=== PATIENT | male | born 1995 | race Caucasian/White ===

== ENCOUNTER 2020-06-29 00:48 | Emergency (ER) | payer OTHER, SELFPAY ==
[2020-06-29 00:53] VITALS: BP 157/99; PULSE 100; RESP 22; TEMP 36.8; O2SAT 100
--- NOTE | 2020-06-29 01:22 | W.ED.GENAD ---
Discharge Plan Disposition Patient Disposition: HOME Condition: Good Discharge Details Clinical Impression: Dislocated shoulder Primary Care Provider: Boby Mayorga ED Provider: Talon Young Home Meds and New Rx's Prescriptions: No Action No Known Home Meds RF: 0 Discharge Instructions Instructions: Shoulder Dislocation (ED) Additional Instructions: Wear sling until follow-up with orthopedics. Contact [facility] on Wednesday. You may do gentle range of motion exercises when your pain is better. Ice on and off over the weekend. Acetaminophen or ibuprofen if needed for discomfort. Return to ED if any problems. Stand Alone Forms: Work Release Medical Decision Making X-ray of left shoulder confirms anterior dislocation. Attempted reduction without meds by external rotation as well as FARES technique which he simply could not tolerate. He has previously undergone procedural sedation in the past for shoulder dislocation. We discussed risk and benefits for same. Last p.o. intake was liquid 2 hours prior to arrival. Last solid intake was about 5 hours prior to arrival. Please see procedure documentation for procedural sedation as well as reduction. Patient had no complications. He received a total of 160 mg of propofol and 20 mg aliquots. Ultimately reduced with external rotation as well as some traction. Once propofol had worn off he was sent to x-ray for reduction films. Postreduction films confirmed shoulder to be back in place. Patient to be discharged home in a sling. Note for work provided with no use of left arm until follow-up with orthopedics. He will return to [facility] as he already has a relationship with orthopedics there. HPI General Mode of arrival: ambulatory. Date/Time Provider Initiated Documentation: 06/29/20 01:22. Limitations to Documentation: no limitations. Information obtained by: patient and RN notes reviewed. HPI Narrative: Patient presents to ED with left shoulder dislocation. Patient is left-hand dominant. Patient has previous history of shoulder dislocation with surgery to repair same about 5 years ago. Has noticed that his shoulder has been getting worse over time. Tonight he was just trying to scoot himself across the couch. He felt something different in his shoulder and then immediate pain and spasm. He has difficulty moving his arm at the shoulder. Denies numbness or weakness. Denies other injury or problem. Related Data Home Medications Medication Instructions Recorded Confirmed Unknown [No Known Home Meds] 08/27/17 11/27/17 Allergies Allergy/AdvReac Type Severity Reaction Status Date / Time No Known Allergies Allergy Unverified 12/07/17 14:54 General Stated Complaint: Orthopedic ALEXANDRE: 4 Review of Systems Narrative: As documented in HPI otherwise negative as below. Const: no fever, chills, weakness Resp: no cough, SOB, pleuritic pain CV: no CP, diaphoresis, edema, syncope GI: no abdominal pain, nausea, vomiting, diarrhea Neuro: no headache, numbness, focal weakness, confusion PFSH Medical History (Reviewed 06/29/20 @ 01: by Talon Young MD) No significant past medical history Surgical History (Reviewed 06/29/20 @ :27 by Talon Young MD) S/P shoulder surgery Social History (Reviewed 06/29/20 @ : by Talon Young MD) Smoking/Tobacco Use Status: Never Smoking risk assessment performed?: Yes Alcohol Intake: never Drug use: Never Do you feel safe at home: Yes Do you feel safe in your relationship?: Yes Exam Narrative Exam Narrative: Const: WDWN male in NAD, but hunched over holding left arm against body. HEENT: NC/AT. Normal facial exam. Eyes: Normal conjunctiva and sclera. Neck: Supple. Trachea midline. Lungs: Normal respiratory effort. Cor: Good radial pulses. Neuro: A+O x 3. Normal speech, mentation, gait. Cranial nerves II - XII grossly intact. No gross motor or sensory deficit. Ext: Minimal range of motion of left shoulder due to pain. Normal range of motion from the elbow down. Neurovascularly intact distally. Sensation intact over deltoid. Skin: Warm and dry without rash. Course Vital Signs Vital signs: Vital Signs Temperature 98.2 F 06/29/20 00:53 Pulse 100 H 06/29/20 00:53 Respiratory Rate 22 06/29/20 00:53 Blood Pressure 157/99 H 06/29/20 00:53 Pulse Oximetry 100 06/29/20 00:53 Temperature 98.2 F 06/29/20 00:53 Temperature Source Temporal Artery Scan 06/29/20 00:53 Pulse 100 H 06/29/20 00:53 Respiratory Rate 22 06/29/20 00:53 Respiratory Effort Non-Labored 06/29/20 00:55 Blood Pressure 157/99 H 06/29/20 00:53 Blood Pressure Position Sitting 06/29/20 00:53 Pulse Oximetry 100 11/28/20 00:53 Oxygen Delivery Method Room Air 06/29/20 00:53 Oxygen Flow Rate 0 06/29/20 00:53 Pain Level 8 06/29/20 01:02 Procedures Orthopedic Joint Reduction Joint #1: Time Out Performed: Yes Side: left Joint Reduction Location: shoulder Analgesia: procedural sedation Shoulder Technique Used (if applicable): external rotation Post-reduction neuro exam: intact Post-reduction vascular: intact Post Reduction X-Ray Obtained: Yes Post Reduction X-Ray Results: reduced Splint Applied: Yes Patient Tolerated Procedure: well Procedural Sedation Indication: fracture/dislocation reduction Presedation Evaluation: Otherwise healthy male with unremarkable exam other than left shoulder dislocation. Last ate 5 hours prior to arrival. Last drank 2 hours prior to arrival. Mallampati score 1 ASA Class: I Preparation: cardiac cath lab radiology technologist applied, pulse oximeter, capnometry used, supplemental O2 applied, suction/airway equipment at bedside and IV secured IV Propofol dose (mg): 160 Patient Tolerated Procedure: well Complications: none Additional Comments: Received a total of 160 mg of propofol in 20 mg aliquots
--- NOTE | 2020-06-29 01:40 | DI.RAD_ITS ---
EXAM: XR SHOULDER LT COMPLETE 2+V CLINICAL HISTORY: felt shoulder pop out TECHNIQUE: COMPARISON: CR LEFT SHOULDER COMP. POST REDUC from 01/19/2015 FINDINGS: Five views were obtained and show anterior dislocation of the humeral head from the glenoid fossa. T here is an apparent Hill-Sachs deformity. No other fracture seen. Two post reduction views show reduction of the dislocation, no fracture identified apart from the Hil l-Sachs deformity of the humeral head IMPRESSION: RADIATION DOSE DELIVERED: Total DLP Total DLP
--- NOTE | 2020-06-29 01:54 | DI.VRAD_ITS ---
PROCEDURE INFORMATION: Exam: XR Left Shoulder Exam date and time: 06/29/2020 1:27 AM Age: 25 years old Clinical indication: Injury or trauma; Sprain or strain; Injury date: 06/29/20; Injury details: PT felt shoulder pop; Prior surgery; Surgery type: Left shoulder TECHNIQUE: Imaging protocol: XR Left shoulder. Views: 2 or more views. COMPARISON: CR LEFT SHOULDER COMP. POST REDUC 01/19/2015 9:52 PM FINDINGS: Bones/joints: There is anteroinferior dislocation of the humeral head in relationship to the glenoid. There is no fracture identified. There are no lytic or blastic bone lesions. Soft tissues: Normal. IMPRESSION: Anteroinferior dislocation of the left humeral head in relationship to the glenoid. Dictated and Authenticated by: Lito Rice MD. Ordering:DUGLAS Hanley MD
[2020-06-29 02:27] VITALS: BP 134/89; PULSE 95; RESP 22; O2SAT 100
[2020-06-29] MEDS: Normal Saline 1,000 ML 125 ML IV (02:28)
[2020-06-29 02:32] VITALS: PULSE 94; RESP 20; O2SAT 96
[2020-06-29 02:34] VITALS: BP 123/75
[2020-06-29] MEDS: Propofol 200 MG/20 ML VIAL 100 MG IVP (02:40)
[2020-06-29 02:45] VITALS: BP 125/80; RESP 22; O2SAT 98
--- NOTE | 2020-06-29 03:09 | DI.VRAD_ITS ---
PROCEDURE INFORMATION: Exam: XR Left Shoulder Exam date and time: 06/29/2020 2:40 AM Age: 25 years old Clinical indication: Injury or trauma; Dislocation; Injury date: 06/29/20; Injury details: Post reduction films; Prior surgery; Surgery type: Left shoulder TECHNIQUE: Imaging protocol: XR Left shoulder. Views: 2 or more views. COMPARISON: CR XR SHOULDER LT COMPLETE 2+V 06/29/2020 1:34 AM FINDINGS: Bones/joints: The previously described left shoulder dislocation has been reduced. There are no fractures identified. Small inferior glenoid cyst is demonstrated, a finding not visualized on the previous study. Soft tissues: Normal. IMPRESSION: The previously described left shoulder dislocation has been reduced. Dictated and Authenticated by: Lito Rice MD. Ordering:DUGLAS Hanley MD
[2020-06-29 03:48] VITALS: BP 125/80; PULSE 94; RESP 22; TEMP 36.8; O2SAT 98
== END 2020-06-29 03:50 | disposition home or self-care (01) ==
PROVIDERS: Emergency Provider Emergency Medicine; PCP Pediatrics
DX: S43.012A Anterior subluxation of left humerus, initial encounter (principal); X50.9XXA Other and unspecified overexertion or strenuous movements or postures, initial encounter
CPT/HCPCS: 23650; 73030; 96361; 96374; 99281; J2704; L3650

== ENCOUNTER 2021-01-26 20:27 | Emergency (ER) | payer OTHER, SELFPAY ==
[2021-01-26 20:40] VITALS: BP 141/84; PULSE 100; RESP 16; TEMP 36.6; O2SAT 98
--- NOTE | 2021-01-26 20:45 | DI.RAD_ITS ---
Exam(s) XR SHOULDER LT COMPLETE 2+V EXAM: XR SHOULDER LT COMPLETE 2+V CLINICAL HISTORY: shoulder pain. TECHNIQUE: 2D digital imaging was performed. COMPARISON: CR,XR XR SHOULDER LT COMP POST REDUC from 06/29/2020 FINDINGS: There is anterior dislocation of the humeral head relative to the glenoid fossa. No obvious fracture s. IMPRESSION: DATA REPOSITORY: RADIATION DOSE DELIVERED:
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
[2021-01-26] MEDS: HYDROmorphone 2 MG/ML VIAL 1 MG IVP (21:06)
[2021-01-26 21:55] VITALS: PULSE 85; RESP 18; O2SAT 100
--- NOTE | 2021-01-26 22:00 | DI.RAD_ITS ---
Exam(s) XR SHOULDER LT COMP POST REDUC EXAM: XR SHOULDER LT COMP POST REDUC CLINICAL HISTORY: ?reduced shoulder dislocation. TECHNIQUE: 2D digital imaging was performed. COMPARISON: CR,XR XR SHOULDER LT COMP POST REDUC from 06/29/2020 CR,XR XR SHOULDER LT COMPLETE 2+V from 01/26/2021 FINDINGS: There is anterior dislocation of the humeral head relative to the glenoid fossa. No prominent Hill-S achs deformity. No obvious glenoid fracture. AC joint appears unremarkable. IMPRESSION: DATA REPOSITORY: RADIATION DOSE DELIVERED:
[2021-01-26 22:05] VITALS: PULSE 82; PULSE 85; RESP 16; RESP 18; O2SAT 100; O2SAT 99
[2021-01-26 22:13] VITALS: PULSE 74; RESP 23; O2SAT 96
[2021-01-26 22:16] VITALS: BP 130/73; PULSE 70; RESP 20; O2SAT 96
[2021-01-26] MEDS: Propofol 200 MG/20 ML VIAL IVP (22:21)
--- NOTE | 2021-01-26 22:32 | DI.VRAD_ITS ---
PROCEDURE INFORMATION: Exam: XR Left Shoulder Exam date and time: 01/26/2021 8:54 PM Age: 25 years old Clinical indication: Injury or trauma; Fall; Dislocation; Severity not specified; Right; Injury details: Has dislocated this shoulder several times TECHNIQUE: Imaging protocol: XR Left shoulder. Views: 2 or more views. COMPARISON: CR XR SHOULDER LT COMP POST REDUC 06/29/2020 2:48 AM FINDINGS: Bones/joints: Acute anterior dislocation of the left humerus. No discrete linear fracture lucency or displaced fracture is visualized, however overlapping osseous structures limits evaluation of the anterior, inferior glenoid. There is flattening of the posterolateral humeral head suggestive for Hill-Sachs lesion. Acromioclavicular and coracoclavicular intervals are preserved. Soft tissues: No focal abnormality. IMPRESSION: 1. Acute anterior dislocation of the left humerus. 2. Flattening of the posterolateral left humeral head suggestive for Hill-Sachs lesion. Dictated and Authenticated by: Pedrito Aleman MD. Ordering:RASHAWN Yeh MD
--- NOTE | 2021-01-26 22:33 | DI.VRAD_ITS ---
PROCEDURE INFORMATION: Exam: XR Left Shoulder Exam date and time: 01/26/2021 10:13 PM Age: 25 years old Clinical indication: Injury or trauma; Other: Post reduction; Dislocation; Severity not specified; Shoulder; Left TECHNIQUE: Imaging protocol: XR Left shoulder. Views: 2 or more views. COMPARISON: CR XR SHOULDER LT COMPLETE 2+V 01/26/2021 9:17 PM FINDINGS: Bones/joints: Interval improved alignment of the left glenohumeral interval without acute dislocation. There is deformity of the posterolateral humeral head compatible with Hill-Sachs lesion. Otherwise no acute fracture. Acromioclavicular and coracoclavicular intervals are preserved. Soft tissues: No focal abnormality. IMPRESSION: 1. Improved alignment of the left glenohumeral interval without acute dislocation. 2. Defect of the posterolateral humeral head consistent with Hill-Sachs lesion. Dictated and Authenticated by: Pedirto Aleman MD. Ordering:RASHAWN Yeh MD
[2021-01-26 22:38] VITALS: PULSE 80; RESP 18; O2SAT 98
== END 2021-01-26 23:00 | disposition home or self-care (01) ==
PROVIDERS: Emergency Provider Emergency Medicine; PCP Nurse Practitioner Family
DX: S43.085A Other dislocation of left shoulder joint, initial encounter (principal); X58.XXXA Exposure to other specified factors, initial encounter
CPT/HCPCS: 23655; 73030; 96374; 99284; 99283; J2704

== ENCOUNTER 2021-07-15 08:11 | Emergency (ER) | payer OTHER, SELFPAY ==
[2021-07-15 08:14] VITALS: BP 148/85; PULSE 58; RESP 12; TEMP 36.8; O2SAT 99
--- NOTE | 2021-07-15 08:15 | DI.RAD_ITS ---
Exam(s) XR SHOULDER LT COMPLETE 2+V EXAM: XR SHOULDER LT COMPLETE 2+V CLINICAL HISTORY: improving shoulder pain after bedside reduction. TECHNIQUE: 2D digital imaging was performed of the left shoulder. Five images were obtained. AP, G rashey, Y-view and axillary views were obtained. COMPARISON: CR,XR XR SHOULDER LT COMPLETE 2+V from 01/26/2021 FINDINGS: BONES: No acute fracture is present. No bony destructive lesion is seen. JOINTS: No dislocation present. SOFT TISSUE: Normal. IMPRESSION: No acute fracture or dislocation. DATA REPOSITORY: RADIATION DOSE DELIVERED:
--- NOTE | 2021-07-15 08:30 | ED.GENADUL_ITS ---
Discharge Plan Disposition Patient Disposition: HOME Condition: Improving Discharge Details Clinical Impression: Recurrent anterior dislocation of left shoulder Primary Care Provider: Leo Wallace ED Provider: Lisandro Youngblood Home Meds and New Rx's Prescriptions: No Action No Known Home Meds RF: 0 Discharge Instructions Instructions: Shoulder Dislocation (ED) Additional Instructions: Tylenol and/or ibuprofen as needed for pain. See enclosed work note Please follow-up with Dr. Tinsley in clinic. We did place a referral today on your behalf. The clinic number is [phone]. May remove sling for sleep or to bathe. Ice to reduce discomfort. Return to the ER for any concerns. Stand Alone Forms: Work Release Referrals: Butch Tinsley MD [ [facility] STAFF PHYSICIAN] - Medical Decision Making 26-year-old male with a history of previous left recurrent anterior glenohumeral dislocations, status post repair at the [facility], following which he has had 3 recurrent dislocations for a total of approximately 8. This morning rolled over in bed and reached out towards his child, felt a left shoulder pop and then sensation of recurrent dislocation. He held arm in flexion and internal rotation, presented to the ER. Patient's bedside clinical exam reveals no motor or sensory function, 2+ radial pulse bilaterally. With the patient's consent we performed breathing techniques, I applied axial traction to the humerus and external rotation, there was a palpable clunk and the patient felt significant immediate improvement of pain. Post bedside reduction neuro, motor, vascular exam is within normal limits. Patient referred for x-ray; negative, reduced. Patient has previous seen Dr. Tinsley for a slap lesion of the affected joint and has considered plans for repeat shoulder repair for recurrent glenohumeral instability. He is placed in a sling, we will refer him to orthopedics for follow-up. He is stable and improved at this time. HPI General Mode of arrival: ambulatory . Date/Time Provider Initiated Documentation: 07/15/21 08:15 . Limitations to Documentation: no limitations . Information obtained by: patient . History of Present Illness 26 year old M presents to the emergency department with the chief complaint of Recurrent left shoulder pain, described as moderate and similar to prior episodes, Quality is described as dull and constant, and is localized to the lower extremity. Patient reports no radiation. and it has been constant. No relieving factors improve symptom(s), Movement worsens symptoms . Patient notes denies weakness. Patient did receive the following treatments prior to arrival, none Related Data Home Medications Medication Instructions Recorded Confirmed Unknown [No Known Home Meds] 07/15/21 07/15/21 Allergies Allergy/AdvReac Type Severity Reaction Status Date / Time No Known Allergies Allergy Verified 07/15/21 08:18 General Stated Complaint: Orthopedic ALEXANDRE: 3 Review of Systems Narrative: Otherwise well, not immunized for COVID-19. Sick systems reviewed and. No motor weakness or numbness today. PFSH All Active Problems (Updated 07/15/21 @ 08:49 by Lisandro Youngblood MD) 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) No-show for appointment (Acute) Left rotator cuff tear (Acute) Instability of left shoulder joint (Acute) Anterior dislocation of left shoulder (Acute) Diabetes mellitus screening (Acute) Screening cholesterol level (Acute) Depression (Chronic) Obesity (Chronic) Medical History No significant past medical history Surgical History S/P shoulder surgery Social History Smoking/Tobacco Use Status: Never Smoking risk assessment performed?: Yes Alcohol Intake: current Alcohol Intake frequency: a few times a week Alcohol type: beer, wine and hard liquor Drug use: Never Substance use type: does not use Current gender identity: male Do you feel safe at home: Yes Do you feel safe in your relationship?: Yes Exam Narrative Exam Narrative: GEN: awake, alert, oriented 3. Pleasant, well groomed, interactive. HEAD: Normocephalic, atraumatic ENT: Mucous membranes moist, oropharynx unremarkable, External ear exam unremarkable EYES: PERRL, EOMI NECK: Full ROM, no GASTON, no menigismus CHEST/RESP: Nontender, clear to auscultation bilateral, no wheeze/rhonchi/rales CARDIOVASCULAR: RRR, no murmur, rub anne marie. 2+ Rad pulse bilateral EXT: Right upper extremity unremarkable. 2+ radial bilaterally. Loss of fullness of humeral head left. Left arm held in abduction and internal rotation. Patient demonstrates normal motor function of radial, median, ulnar nerves distally. Sensation is intact throughout. Neuro: Grossly normal neurologic exam, conversant, interactive. Psych: Speech fluent, thoughts congruent, affect normal Course Vital Signs Vital signs: Vital Signs Temperature 36.8 C 07/15/21 08:14 Pulse 58 L 07/15/21 08:14 Respiratory Rate 12 07/15/21 08:14 Blood Pressure 148/85 H 07/15/21 08:14 Pulse Oximetry 99 07/15/21 08:14 Temperature 36.8 C 07/15/21 08:14 Temperature Source Temporal Artery Scan 07/15/21 08:14 Pulse 58 L 07/15/21 08:14 Respiratory Rate 12 07/15/21 08:14 Respiratory Effort Non-Labored 07/15/21 08:17 Blood Pressure 148/85 H 07/15/21 08:14 Blood Pressure Position Sitting 07/15/21 08:14 Pulse Oximetry 99 07/15/21 08:14 Oxygen Delivery Method Room Air 07/15/21 08:14 Oxygen Flow Rate 0 07/15/21 08:14 Pain Level 8 07/15/21 08:20 Procedures Orthopedic Joint Reduction Joint #1: Time Out Performed: Yes Side: left Analgesia: none Post-reduction neuro exam: intact and no change Post-reduction vascular: intact and no change Post Reduction X-Ray Obtained: Yes Additional Comments: Axial traction, external rotation, muscle relaxation technique. PAWSS Have you Been Recently Intoxicated or Drunk Within the Last 30 days?: Yes Have you Ever Experienced Previous Episodes of Alcohol Withdrawal?: No Have you ever Experienced Withdrawal Seizures?: No Have you ever Experienced Delirium Tremens(DT)s?: No Have you ever undergone Alcohol Rehabilitation Treatment (i.e, inpt ot outpatient treatment programs)?: No Have you ever Experienced Blackouts?: No Have you ever Combined Alcohol with other Downers within the last 90 days?: No Have you ever Combined Alcohol with any other Substance of Abuse during the last 90 days?: No Positive Blood Alcohol level on Presentation? [PCS.BAL]: No Evidence of Increased Autonomic Activity (i.e. HR>120, tremor, sweating, agitation, nausea)?: No Result: 1
[2021-07-15 09:13] VITALS: BP 136/78; PULSE 62; RESP 16; TEMP 36.6; O2SAT 100
== END 2021-07-15 09:13 | disposition home or self-care (01) ==
PROVIDERS: Emergency Provider Emergency Medicine; PCP Nurse Practitioner Family
DX: M24.412 Recurrent dislocation, left shoulder (principal)
CPT/HCPCS: 23650; 73030

== ENCOUNTER 2021-12-10 00:59 | Outpatient (CLI) | payer OTHER, SELFPAY ==
[2021-12-10 11:09] LABS: Source Nasal/Nares
[2021-12-10 14:17] LABS: COVID-19 PCR Negative (Negative)
== END 2021-12-10 01:00 | disposition home or self-care (01) ==
LOC: LBO 00:59
PROVIDERS: PCP Nurse Practitioner Family; Visit Provider Student in an Organized Health Care Education/Training Program
DX: Z20.822 Contact with and (suspected) exposure to COVID-19 (principal); Z01.818 Encounter for other preprocedural examination
CPT/HCPCS: 87635

== ENCOUNTER 2021-12-12 10:36 | Day surgery (SDC) | payer OTHER, SELFPAY ==
[2021-12-12] VITALS (8 sets, daily range): BP systolic 100–131; BP diastolic 64–98; PULSE 72–96; RESP 13–32; TEMP 36.2–36.8; O2SAT 94–99; BMI 38.7
--- NOTE | 2021-12-12 09:30 | W.ANESPRE ---
General Info Date of Service Date Performed: 12/12/21 Height: 5 ft 10 in Weight: 122.47 kg Body Mass Index (BMI): 38.7 Surgical Procedure: Operation Date: 12/12/21 12:40 Proposed Procedure Side Surgeon p Shoulder Arthroscopy w/Extensive Debridement, Biceps Tenodesis, Subacromial Decompression, Revision Labral Repair, Remplissage Left Butch Tinsley MD Meds Allergies and Home Medications Allergies Allergy/AdvReac Type Severity Reaction Status Date / Time No Known Allergies Allergy Verified 12/12/21 10:58 Home Medication Medication Instructions Recorded aspirin 81 mg tablet,delayed 81 mg PO DAILY Prevent blood clot 12/12/21 release 14 days #14 tabs naproxen 250 mg tablet 250 - 500 mg PO BID PRN #40 tabs 12/12/21 oxycodone 5 mg tablet 5 - 10 mg PO Q4H PRN moderate to 12/12/21 severe pain #18 tabs Current Visit Medications: Current Medications Generic Name Dose Route Start Last Admin Trade Name Freq PRN Reason Stop Dose Admin Ringer's Solution 1,000 mls @ 100 mls/hr 12/12/21 06:00 IV 01/10/22 23:59 INFUSION LES Cefazolin Sodium/Dextrose 2 gm in 50 mls @ 100 mls/hr 12/12/21 06:00 Ancef Duplex IVPB 12/12/21 16:00 PREOP LES IV Miscellaneous Supplies 1 each 12/12/21 06:00 Iv Access IV 01/10/22 23:59 DIRECTED LES Naproxen 250 - 500 mg 12/12/21 07:30 Naproxen 500 Mg Tab PO BID PRN PRN Oxycodone HCl 5 - 10 mg 12/12/21 07:30 Oxycodone 5 Mg Tab PO Q4H PRN PRN Sodium Chloride 0 ml 12/12/21 06:00 Normal Saline Flush 10 Ml Syr IV 01/10/22 23:59 PRN PRN Sodium Chloride 0 ml 12/12/21 06:00 Normal Saline 10 Ml Vial IJ 01/10/22 23:59 DIRECTED PRN Sterile Water 0 ml 12/12/21 06:00 Water,Injection,Sterile 10 Ml Vial IJ 01/10/22 23:59 DIRECTED PRN PFSH Active Problems Active Problems: Problem Status Onset Code Recurrent anterior dislocation of left shoulder M24.412 No-show for appointment Z53.29 Left rotator cuff tear M75.102 Instability of left shoulder joint M25.312 Anterior dislocation of left shoulder S43.015A Diabetes mellitus screening Z13.1 Screening cholesterol level Z13.220 Depression F32.9 Obesity E66.9 Medical History Medical History No significant past medical history Surgical History Surgical History S/P shoulder surgery Tobacco Smoking/Tobacco Use Status: Never Alcohol Alcohol Intake: current Alcohol intake frequency: a few times a week Alcohol type: beer, wine and hard liquor Substance Use Substance use: Never Substance use type: does not use Vital Signs and Lab Results Lab Results Blood Type / Crossmatch: No Data to Display Complete Blood Count: No Data to Display Complete Metabolic Panel: No Data to Display Liver Function Panel: No Data to Display Coagulation Panel: No Data to Display Cardiac Panel: No Data to Display Arterial Blood Gas: No Data to Display Venous Blood Gas: No Data to Display Pancreas Panel: No Data to Display Thyroid Panel: No Data to Display Infectious Disease: Coronavirus (COVID-19)(PCR) Negative (Negative) 12/10/21 08:42 Coronavirus 2019 Source Nasal/Nares 12/10/21 08:42 Blood Cultures: No Data to Display Toxicology Panel: No Data to Display Anesthesia Assessment and Plan Anesthesia History Personal History: No History of Anesthesia Complications Family History: No Family History of Anesthesia Complications Exercise Tolerance Exercise Tolerance: Metabolic Equivalents>4 Pertinent Negatives Pertinent Negatives: No Symptoms of GERD, No Major Cardiovascular Symptoms or Complaints, No Major Pulmonary Symptoms or Complaints and No History of CVA/TIA Cardiac & Pulmonary Exam Cardiac Exam: Normal S1/S2 Heart Sounds Pulmonary Exam: Clear Bilateral Breath Sounds Implantable Cardiac Device Does patient have a Pacemaker or an ICD?: No Airway Exam Known Difficult Airway: No Mallampati Class: 2 Mouth Opening: Normal (> 3cm) Thyromental Distance: Greater than 3 cm Neck Range of Motion: Full ROM Neck Circumference: Normal Teeth Condition: Normal Dentition ASA Classification ASA Score: ASA 2 Emergency Case?: No NPO Status NPO Status: NPO Clears >2 hours, Solids >8 hours Anesthesia Plan Resuscitation Status: Full Code Anesthesia Technique: General Anesthesia Airway Planned: Endotracheal Tube Pain Management: Surgeon and patient request nerve block Monitors Used: Standard Monitors
[2021-12-12] MEDS: Lactated Ringers 1,000 ML 100 ML IV (11:09)
[2021-12-12] MEDS: ceFAZolin 2 GM/50 ML BAG IVPB (13:07)
--- NOTE | 2021-12-12 15:36 | W.ANESNERVE ---
Nerve Block Single Injection Procedure Date and Time Date Performed: 12/12/21 Procedure Start: 12:26 Location Where Procedure Performed Procedure Location: Day Surgery Unit Reason Performed: Postoperative Analgesia Requesting Provider: Butch Tinsley Timeout Performed Timeout Performed: Yes Monitoring Used ECG, Blood Pressure and SpO2 Sterility Sterility: Hand Hygiene, Surgical Cap, Surgical Mask, Sterile Gloves and Chlorhexidine Sedation Given During Procedure Sedation Given (Indicate Dose Given): Versed IV Dose:: 2 mg Patient Mental Status Patient Mental Status: Sedate with meaningful communication Nerve Block 1st Nerve Block: Laterality: Left Block Type: Interscalene Needle / Catheter Used: 100mm SonoPlex II Local Anesthetic Bolus (Indicate Dose Given): Lidocaine used for local infiltration of skin, Injected in 3-5ml increments after negative blood aspiration and Bupivacaine 0.5% Dose:: 15 Additives (Indicate Dose Given): Precedex Dose:: 90 mcg Ultrasound: Sterile probe cover and gel used Ultrasound Image Saved?: Yes Nerve Stimulator: Not Used Paresthesia: None Procedure Tolerated: No Complications and Patient tolerated well Procedure Outcome: Successful Performed By: Bhavesh Hebert 2nd Nerve Block: Laterality: Left Block Type: Superficial Cervical Plexus Needle / Catheter Used: 100mm SonoPlex II Local Anesthetic Bolus (Indicate Dose Given): Lidocaine used for local infiltration of skin, Injected in 3-5ml increments after negative blood aspiration and Bupivacaine 0.5% Dose:: 5 ml Additives (Indicate Dose Given): Precedex Dose:: 30 mcg Ultrasound: Sterile probe cover and gel used Ultrasound Image Saved?: Yes Nerve Stimulator: Not Used Paresthesia: None Procedure Tolerated: No Complications and Patient tolerated well Procedure Outcome: Successful Performed By: Bhavesh Hebert
[2021-12-12] MEDS: EPINEPHrine 30 MG/30 ML VIAL (16:07)
--- NOTE | 2021-12-12 16:17 | W.PM.DSUDISC ---
Discharge Plan Disposition Patient Disposition: HOME Condition: Stable Discharge Details Reason For Visit: Left shoulder surgery Attending Provider: Butch Tinsley Primary Care Provider: Leo Wallace Home Meds and New Rx's Prescriptions: New naproxen 250 mg tablet 250 - 500 mg PO BID PRNQty: 40 0RF Rx Instructions: take with a meal aspirin 81 mg tablet,delayed release (DR/EC) 81 mg PO DAILY 14 Days Qty: 14 0RF oxycodone 5 mg tablet 5 - 10 mg PO Q4H MDD 30 mg PRN (Reason: moderate to severe pain) Qty: 18 0RF Discharge Instructions Additional Instructions: Surgery: Left shoulder arthroscopy with revision labral repair, Remplissage, biceps tenodesis, extensive debridement, and subacromial decompression. Activity: For 6 weeks, you should keep your arm at your side in a neutral position at all times except for physical therapy. Do not try to lift or raise your arm using your own muscles. You should use the sling whenever you are out of the house. You may have to adjust the abduction pillow or remove it for comfort. At home it is best to remove the sling and rest the arm on a pillow at your side or support the operative side with your other hand. You may allow the arm to dangle at your side. A physical therapy prescription will be sent electronically to begin in about 3 weeks. Protocol: Weeks 0?3: No external rotation, maximum 90 degrees forward elevation Weeks 3?6: Maximum 30 degrees external rotation, 120 degrees forward elevation Weeks 6+: Gently progress to full passive range of motion followed by active assist and active motion Weeks 12+: Start strengthening Prescriptions: Aspirin 81 mg take 1 daily to prevent a blood clot for 2 weeks Naproxen 250 mg take 1-2 every 12 hours with a meal as needed for moderate pain Oxycodone 5 mg take 1-2 every 4-6 hours as needed for severe pain You may use [id number] Tylenol (acetaminophen) as needed for mild pain. These pain medications may be taken all at once or in different combinations as needed. Also, recommend Colace (docusate) as a stool softener as surgery and pain medicine cause constipation. Dressings: Remove shoulder bandage after 3 days. Leave the sticky Steri-Strips in place until they fall off or remove them after you shower. Cover the incisions with Band-Aids or leave them open to air. You may shower after 5 days. Follow-up: 10-[address] Tinsley You may take off the leg compression stockings this evening at home. You may also leave them on a few days longer if you have a history of leg swelling or edema. Let us know right away if you develop any redness, drainage, fevers, chest pain, or trouble breathing. Do not drink alcohol or drive for at least 24 hours after anesthesia. Please call the office during business hours with any questions or concerns. Referrals: Butch Tinsley MD [ [facility] STAFF PHYSICIAN] - Discharge Orders Discharge Orders: Discharge Order (Routine); Ordered 12/12/21 Ordered By: Butch Tinsley DS: Diagnosis Discharge Diagnosis (1) Recurrent anterior dislocation of left shoulder: Status: Acute
--- NOTE | 2021-12-12 16:29 | ROE_ITS ---
Date of service: 12/12/21 Time of Service: 15:18 Operative Note Operative Note DATE OF PROCEDURE: 12/12/21 PRE-OP DIAGNOSIS: Left: 1. Recurrent shoulder instability 2. Failed SLAP repair with proximal biceps tendinopathy 3. Partial articular sided supraspinatus infraspinatus rotator cuff tearing 4. Hill-Sachs lesion 5. Bursitis POST-OP DIAGNOSIS: same PROCEDURE: Left: 1. Rotator cuff repair, CPT# 18011. This involved repair of the articular sided infraspinatus rotator cuff tear using Remplissage technique to cover the humeral head defect 2. Arthroscopic biceps tenodesis, CPT# 44767. This involved arthroscopically suturing and reattaching the long head of the biceps tendon to the proximal humerus at the superior margin of the bicipital groove with a screw at the correct tension. 3. Labral repair, CPT #91620: This involved suture anchor anchor revision repair of the Bankart lesion with capsulorrhaphy 4. Extensive debridement, CPT# 13007. This involved using arthroscopic hand instruments, power instruments, and radiofrequency instruments to release the long head of the biceps tendon and debride areas of labral tearing, synovitis, and chondromalacia about the biceps groove within the glenohumeral joint anteriorly, superiorly and posteriorly. Permanent retained loose suture material was also removed using pituitary rongeur through existing portals at the failed SLAP repair and labral repair sites. 5. Subacromial decompression, CPT# 52252. This involved using arthroscopic power instruments and a radiofrequency wand to complete a bursectomy and remove bone spurs on the undersurface of the acromion. The assistant to the vice president was medically required in order to help assist in techniques above, which require positioning the arm, holding the arthroscope, and manipulating multiple instruments and sutures at the same time. This cannot be done without the help of an experienced assistant to the vice president. SURGEON: Butch Tinsley CORPORATE TRAVEL COORDINATOR: Kerrie Nathan ANESTHESIA TYPE: General LMA/ETT and Primary Nerve Block Refer to Anesthesia Record ESTIMATED BLOOD LOSS: 15 PATHOLOGY: none sent COMPLICATIONS: None Patient was transported to: PACU Patient's condition: stable Implants: Arthrex: 4.75mm SwiveLocks x 2, 2.9 mm PushLock x 3, and 3.9 mm knotless Corkscrew x 2 Indications: The patient was diagnosed with the above conditions and appropriately indicated for surgical intervention. Please see complete medical record for details. Findings: Exam under anesthesia: Significant anterior instability Glenohumeral joint: Apparent completely failed prior anterior labral Bankart repair with loose residual permanent sutures, no visible suture anchors, and no healed or normal labral tissue on the anterior-inferior and anterior glenoid. Localized full-thickness cartilage loss and very mild bone loss at the Bankart lesion site. Intact subscapularis. Intact [facility] head biceps tendon intra-articular injection. Failed SLAP repair with unstable biceps tendon anchor and loose posterior superior suture. Partial articular sided supraspinatus tear about 20%. Significant partial articular sided supraspinatus tear over a large posterior humeral head Hill-Sachs lesion. Separate, posterior central full-thickness cartilage lesion that appears chronic and possibly iatrogenic from prior arthroscope given the trajectory matched the barrel of an instrument. Subacromial space: Significant bursitis. Intact bursal rotator cuff. No significant subacromial bone spur. Procedure Description: In the operating room, general anesthesia was induced. Bilateral shoulders were examined. The patient was positioned in the beachchair position. All bony prominences were well-padded. Preoperative antibiotics were administered. The shoulder was prepped and draped in the usual sterile fashion. The correct patient, procedure, and side of the procedure were all verified prior to incision. Starting through the posterior portal a standard complete diagnostic arthroscopy was performed of the glenohumeral joint including inspection of the long head of the biceps, anterior and superior labrum, subscapularis tendon, supraspinatus and infraspinatus tendons, and axillary recess. The glenoid and humeral head cartilage as well as the posterior labrum were inspected from an anterior viewing portal. Significant findings and interventions noted above. The prior SLAP repair site was inspected and debrided with unstable biceps tendon anchor. Posterior superior suture was removed using pituitary rongeur. The Bankart lesion was also inspected and there was some residual labral tissue but none opposed to fixated to the anterior anterior-inferior glenoid. The retained suture material was also removed from this site with a pituitary rongeur. The anterior and anterior glenoid was well prepared using various hand and mechanical instruments to optimize revision tissue healing. The partial articular supraspinatus tear was debrided to a stable margin. An all-arthroscopic suprapectoral biceps tenodesis was performed through an anterior portal using a Loop N Tack method with a SutureTape FiberLink cinched around and through the tendon. The biceps was tenotomized from the labrum and fixated with a suture anchor at the superior margin of the bicipital groove. A lower inferior anterior portal was established above the subscapularis. A suture lasso was used to pass a suture tape FiberLink in cinch mode about the anterior inferior labrum tear incorporating AIG HL and capsular tissue. The eccentric drill guide and drill were used followed by placement of the repair suture on a push lock anchor with excellent reapposition and fixation of tissue at the lowest level of the zone of injury onto the face of the glenoid. This was repeated with an additional suture anchor anterior inferiorly and anteriorly on the glenoid face with surprisingly good tissue present for revision repair. Repair was tested through 30-45 degrees external rotation and demonstrated good fixation strength and appropriate anterior-inferior capsular reduction. Starting through the posterior portal, the arthroscope was directed into the subacromial space. A lateral 50 yard line lateral portal was created. A combination of power instruments and a radiofrequency ablator were used to debride bursitis anteriorly, posteriorly, and laterally as well as expose the undersurface of the acromion. The coracoacromial ligament was preserved. The bursectomy was completed viewing laterally and working from posteriorly and the rotator cuff was thoroughly inspected with findings noted above. The arthroscope was brought back to the posterior portal and the arm positioned to identify the infraspinatus rotator cuff lesion over the Hill-Sachs defect. The percutaneous kit was used to place 2 knotless corkscrew anchors just off the articular margin posteriorly spanning the defect. In the bursal space, the knotless repair mechanisms were shuttled through the opposite eyelet and provisionally tensioned. Bursal tissue was cleared laterally arm position optimized and the punch for a SwiveLock anchor. Each repair stitch was then brought out laterally and secured to a SwiveLock lateral row anchor after confirming tension on the remplissage through the knotless mechanisms was appropriate. The joint was inspected again and Hill-Sachs lesion could not be visualized with strong reapposed posterior rotator cuff tissue covering the defect. The shoulder was drained of arthroscopic fluid. All portal sites were copiously irrigated. These incisions were closed using 3-0 Monocryl in a buried fashion and then covered with Mastisol, Steri-Strips, Xeroform, dry gauze, and ABDs. The dressings were covered and secured with Medipore tape. The operative extremity was placed into a sling for immobilization. The patient awoke from anesthesia without complication and was transferred to the recovery room in a stable condition.
--- NOTE | 2021-12-12 16:56 | W.ANESPOSTOP ---
Postoperative Evaluation Date, Time and Location Date Performed: 12/12/21 Time Performed: 15:56 Patient Location: PACU Vital Signs Most Recent Imported Vital Signs: Most Recent Vital Signs Temp Pulse Resp BP Pulse Ox 36.5 C 90 21 100/69 94 12/12/21 16:47 12/12/21 16:47 12/12/21 16:47 12/12/21 16:47 12/12/21 16:47 Pain Score Most Recent Pain Score: Most Recent Pain Score Pain Level 0 12/12/21 16:47 Assessment Mental Status: Awake (Alert & Oriented to Patient Baseline) Airway and Respiratory Function: Patent airway with normal (patient baseline) respiratory exam Cardiovascular Function: Hemodynamically Stable Hydration Status: Adequately Hydrated Nausea & Vomiting: No Nausea or Vomiting Pain: Pt. Denies Any Pain Peripheral Nerve Block: Regional nerve block not resolved at time of post operative discharge (Block working well, patient reports no discomfort)
== END 2021-12-12 18:25 | disposition home or self-care (01) ==
PROVIDERS: PCP Nurse Practitioner Family; Visit Provider Student in an Organized Health Care Education/Training Program
PROC: (CPT 29805; principal; 2021-12-12 12:30)
DX: M24.412 Recurrent dislocation, left shoulder (principal); M75.102 Unspecified rotator cuff tear or rupture of left shoulder, not specified as traumatic; M75.22 Bicipital tendinitis, left shoulder; M75.52 Bursitis of left shoulder; E66.9 Obesity, unspecified; F32.A Depression, unspecified
CPT/HCPCS: 29806; 29827; 29828; 29823; 29826; J0690; J1100; J1885; J2250; J2405

== ENCOUNTER 2024-07-30 16:04 | Emergency (ER) | payer OTHER, SELFPAY ==
[2024-07-30 16:09] VITALS: BP 143/88; PULSE 113; RESP 16; TEMP 36.8; O2SAT 98
--- NOTE | 2024-07-30 16:30 | DI.RAD_ITS ---
Exam(s) XR CHEST 2V PA LATERAL EXAM: XR CHEST 2V PA LATERAL CLINICAL HISTORY: Eval PNA TECHNIQUE: 2D digital imaging was performed. Two views. COMPARISON: CR CHEST ONE VIEW IN RAD DEPT from 02/23/2012 FINDINGS: HEART: Normal size. Aorta: Not dilated. PULMONARY VASCULATURE: Normal. MEDIASTINUM: Unremarkable. LUNGS: Right lower lobe infiltrate. PLEURAL SPACE: No pleural effusion or pneumothorax. BONE:Mild T12 compression fracture. SOFT TISSUES: Unremarkable. IMPRESSION: Right lower lobe pneumonia. DATA REPOSITORY: RADIATION DOSE DELIVERED:
--- NOTE | 2024-07-30 17:17 | ED.GENADUL_ITS ---
Discharge Plan Disposition Patient Disposition: Home Condition: Stable Discharge Details Clinical Impression: Right lower lobe pneumonia Primary Care Provider: Leo Wallace ED Provider: Nidhi Pisano Home Meds and New Rx's Prescriptions: New amoxicillin 500 mg capsule 1,000 mg PO TID 5 Days Qty: 30 0RF azithromycin 250 mg tablet 250 mg PO DAILY 4 Days Qty: 4 0RF Rx Instructions: start on day 2 of therapy (07/31/2024) Discharge Instructions Instructions: Community-Acquired Pneumonia, Adult (DC) Additional Instructions: You were seen in the emergency department today for evaluation of fever, cough, and were found to have pneumonia. In our department you had a full physical examination performed and had an x-ray that showed a right lower lobe pneumonia. You received your first dose of antibiotics today, and a prescription for them were sent to your pharmacy. Please take all of these medications until they are gone, even if you start to feel better. Please follow-up with your primary care provider in the next few days to discuss this visit and any symptoms that change, worsen, or persist. You can continue to use Tylenol and ibuprofen as needed for management of pain and fever. Thank you for allowing us to be part of your care. Discharge Data Discharge Date/Time-TO BE ENTERED AT DEPARTURE: 07/30/24 18:10 HPI General Mode of arrival: ambulatory . Date/Time Provider Initiated Documentation: 07/30/24 16:05 . Limitations to Documentation: no limitations . Information obtained by: patient and old records reviewed . HPI Narrative: HPI: This is a previously healthy 29-year-old male patient presenting for evaluation of 1 and half weeks of cough, fatigue, subjective fever and night sweats. The patient reports that he has felt ill but has not had the opportunity to take time off of work. Cough is productive of sputum, nonbloody, and he endorses subjective fevers. He is taken COVID test at home that were negative. States that he has been able to eat and drink typically and has been able to maintain his hydration. No vomiting, no pain, and he is otherwise in his normal state of health. Exam: Gen: Awake and alert, in no apparent distress HEENT: Non-icteric sclera Neck: Supple Lungs: No apparent respiratory distress, normal respiratory effort. Lung sounds clear and equal bilaterally without wheezes, rhonchi, rales CV: Appears well perfused, heart with regular rate and rhythm, tachycardia that was appreciated in triage has improved, with strong distal pulses Abdomen: Non-distended MSK: Moves 4 extremities without apparent limitation in ROM Skin: Visualized skin without rashes, cyanosis. Neuro: Normal Gait, no obvious focal deficits or facial asymmetry. Speaks in full, clear sentences. Psych: Appropriate for situation. MDM: This is a 29-year-old male patient presenting for evaluation of cough with fever and fatigue. Differential includes but is not limited to viral upper respiratory infection, pneumonia, bronchitis, no evidence for wheezing to suggest reactive airway disease exacerbation. No fluid overload to suggest pulmonary edema or pleural effusion. The patient is maintaining his hydration and I have a low concern for metabolic electrolyte derangements or dehydration. Will obtain a viral swab and a chest x-ray. The patient is not requiring of any medications for management of pain at this time and is afebrile in this emergency department. ED Course: Viral swab negative, chest x-ray shows a right lower lobe pneumonia for which the patient received his first dose of azithromycin and amoxicillin in this emergency department. A prescription for same was sent to the pharmacy, and at this time, the patient has had a full medical evaluation and is safe for discharge to home. They are hemodynamically stable, ambulatory, and tolerating PO. They are understanding of the follow-up plan and return precautions. They left our facility without incident. Nidhi Pisano MD Related Data Home Medications ?Medication ?Instructions ?Recorded ?Confirmed amoxicillin 500 mg capsule 1,000 mg (2 x 500 mg) PO TID 5 07/30/24 days #30 caps azithromycin 250 mg tablet 250 mg PO DAILY 4 days #4 tabs 07/30/24 Previous Rx's ?Medication ?Instructions ?Recorded amoxicillin 500 mg capsule 1,000 mg (2 x 500 mg) PO TID 5 07/30/24 days #30 caps azithromycin 250 mg tablet 250 mg PO DAILY 4 days #4 tabs 07/30/24 Allergies Allergy/AdvReac Type Severity Reaction Status Date / Time No Known Allergies Allergy Verified 07/30/24 16:10 General Stated Complaint: RespSymp ALEXANDRE: 4 Course Vital Signs Vital signs: Vital Signs Temperature 36.8 C 07/30/24 16:09 Pulse 113 H 07/30/24 16:09 Respiratory Rate 16 07/30/24 16:09 Blood Pressure 143/88 H 07/30/24 16:09 Pulse Oximetry 98 07/30/24 16:09 Temperature 36.8 C 07/30/24 16:09 Pulse 113 H 07/30/24 16:09 Respiratory Rate 16 07/30/24 16:09 Blood Pressure 143/88 H 07/30/24 16:09 Pulse Oximetry 98 07/30/24 16:09 Pain Level 0 07/30/24 16:09 Medical Decision Making Quality:SDOH Health Related Social Needs: No Data to Display PFSH All Active Problems (Updated 07/30/24 @ 17:18 by Nidhi Pisano MD) Right lower lobe pneumonia (Acute) 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) Left rotator cuff tear (Acute) Instability of left shoulder joint (Acute) Diabetes mellitus screening (Acute) Screening cholesterol level (Acute) Depression (Chronic) Obesity (Chronic) Medical History No-show for appointment No significant past medical history Surgical History S/P shoulder surgery Social History Smoking/Tobacco Use Status: Current-Occasional Tobacco Type: cigars Smoking risk assessment performed?: Yes Alcohol Intake: current Alcohol Intake frequency: a few times a week Alcohol type: beer, wine and hard liquor Drug use: Never Substance use type: does not use Current gender identity: male Do you feel safe at home: Yes Do you feel safe in your relationship?: Yes
[2024-07-30 17:36] LABS: COVID-19 PCR Negative (Negative); Influenza A PCR Negative (Negative); Influenza B PCR Negative (Negative); RSV PCR Negative (Negative)
[2024-07-30] MEDS: Amoxicillin 500 MG CAP 1000 MG PO (17:41)
[2024-07-30] MEDS: Azithromycin 250 MG TAB 500 MG PO (17:41)
[2024-07-30 18:03] LABS: Source Nasopharynx
== END 2024-07-30 18:10 | disposition home or self-care (01) ==
PROVIDERS: Student in an Organized Health Care Education/Training Program; Emergency Provider Emergency Medicine; PCP Nurse Practitioner Family
DX: J18.9 Pneumonia, unspecified organism (principal); R53.83 Other fatigue; F17.290 Nicotine dependence, other tobacco product, uncomplicated
CPT/HCPCS: 87637; 99284; 71046

== ENCOUNTER 2024-10-04 11:24 | Outpatient (CLI) | payer OTHER, SELFPAY ==
[2024-10-04 12:54] LABS: Hemoglobin A1C 5.3 % (<5.7)
[2024-10-04 13:11] LABS: Anion Gap 6.8 mmol/L (3-11); BUN 17 mg/dL (7-18); CO2 30.2 mmol/L (21.0-32.0); CREATININE 1.1 mg/dL (0.70-1.30); Calcium 9.2 mg/dL (8.5-10.1); Calculated LDL 141 mg/dL (<100); Chloride 106 mmol/L (98-107); Cholesterol 240 mg/dL (<200); Estimated GFR 93.77 (mL/min/1.73m2); Glucose 69 mg/dL (74-106); HDL Cholesterol 52 mg/dL (>or=40); Sodium 143 mmol/L (136-145); Triglyceride 236 mg/dL (<150)
== END 2024-10-04 11:25 | disposition home or self-care (01) ==
LOC: LBO 11:24
PROVIDERS: PCP Nurse Practitioner Family; Visit Provider Nurse Practitioner Family
DX: Z13.1 Encounter for screening for diabetes mellitus (principal); R03.0 Elevated blood-pressure reading, without diagnosis of hypertension; Z13.220 Encounter for screening for lipoid disorders
CPT/HCPCS: 36415; 80048; 80061; 83036

== ENCOUNTER 2025-02-09 22:11 | Outpatient (REF) | payer OTHER, SELFPAY ==
[2025-02-12 09:36] LABS: HIV-1/2 Ag & Ab Screen Negative (Negative)
[2025-02-12 10:05] LABS: Hepatitis A Antibody IgM Negative (Negative); Hepatitis C Ab w Rflx HCV PCR Negative (Negative)
[2025-02-12 13:28] LABS: Chlamydia Result Negative (Negative); GC Result Negative (Negative)
== END 2025-02-09 22:12 | disposition home or self-care (01) ==
LOC: LBN 22:11
PROVIDERS: PCP Nurse Practitioner Family; Visit Provider Physician Assistant
DX: Z11.3 Encounter for screening for infections with a predominantly sexual mode of transmission (principal)
CPT/HCPCS: 86704; 86709; 86803; 87340; 87389; 87491; 87591